=== PATIENT | female | born 1990 | race African-American/Black ===

== ENCOUNTER 2017-10-22 05:33 | Emergency (ER) | payer MEDICAID, MEDICARE ==
[~2017-10-22] VITALS: Ht 167.6 cm; Wt 64.0 kg
[2017-10-22 05:37] VITALS: BP 123/88
== END 2017-10-22 07:40 | disposition home or self-care (01) ==
LOC: ER 07:38
DX: K64.4 Residual hemorrhoidal skin tags (principal); K64.5 Perianal venous thrombosis
CPT/HCPCS: 99282